=== PATIENT | female | born 1940 | race African-American/Black ===

== ENCOUNTER 2020-03-19 02:59 | Observation (INO) ==
[2020-03-19] MEDS ORDERED: hydrALAZINE 20 MG/1 ML VIAL IV STA (03:59)
[2020-03-19 04:33] LABS: Basophils % 0.2 % (0.0-0.8); Eosinophils # 0.1 10*3/uL (0.0-0.87); Eosinophils % 1.2 % (0.00-10.9); Hemoglobin 10.1 GM/DL (12.0-16.0); Immature Granulocytes % 0.4 %; Immature Granulocytes Absolute 0.02 #; Lymphocytes # 1.2 10*3/uL (1.4-4.0); Lymphocytes % 25.3 % (21.3-54.2); Mean Corpuscular HGB Conc 31.6 GM/DL (32-36); Mean Corpuscular Volume 91.4 FL (87-102); Mean Platelet Volume 10.4 FL (9.6-12.0); Monocytes % 8.6 % (1.7-12.7); Neutrophils % 64.3 % (38.7-73.9); Platelet Count 171 T/CUMM (130-400); Red Cell Distribution Width 13.4 % (9.3-17.3); White Blood Count 4.9 T/CUMM (4-12)
[2020-03-19 04:43] LABS: Bacteria,Urine Occasional /HPF (Few); Bilirubin,Urine Negative (Negative); Blood, Urine Negative (Negative); Glucose,Urine (UA) Negative (Negative); Ketones,Urine Negative (Negative); Mucus,Urine Occasional /LPF (Occasional); Nitrite,Urine Negative (Negative); Protein,Urine Negative; RBC,Urine <1 /HPF (0-4); Squamous Epithelial Cell,Urine Occasional /HPF (0-10); Urine Appearance CLEAR (Clear); Urine Color Colorless (Yellow); Urine Specific Gravity 1.005 (1.001-1.035); Urine Urobilinogen < 2.0 EU/DL (0.2-1.0); WBC,Urine 2 /HPF (0-6)
[2020-03-19 04:44] LABS: Albumin 3.8 G/DL (3.4-5.0); Bilirubin,Total 0.6 MG/DL (0.2-1.0); Calcium 10.3 MG/DL (8.5-10.1); Osmolality,Calculated 286.1 MOS/KG (273-304); Total Protein 7.8 G/DL (6.4-8.3)
[2020-03-19] MEDS ORDERED: NITROGLYCERIN SL 0.4 MG TABLET SL STA (05:19)
[2020-03-19] MEDS ORDERED: NITROGLYCERIN SL 0.4 MG TABLET SL ONE (05:20)
[2020-03-19] MEDS ORDERED: ONDANSETRON 4 MG/2 ML VIAL IV PRN (05:22)
[2020-03-19] MEDS ORDERED: DEXTROSE 50% 25 GM/50 ML VIAL IV PRN (05:22)
[2020-03-19] MEDS ORDERED: ACETAMINOPHEN 325 MG TABLET PO PRN (05:22)
[2020-03-19] MEDS ORDERED: hydrALAZINE 20 MG/1 ML VIAL IV PRN (05:22)
[2020-03-19] MEDS ORDERED: GLUCAGON 1 MG VIAL IM PRN (05:22)
[2020-03-19] MEDS ORDERED: ONDANSETRON 4 MG/2 ML VIAL IV ONE (05:23)
[2020-03-19] MEDS ORDERED: MORPHINE 4 MG/1 ML VIAL IV STA (05:23)
[2020-03-19] MEDS ORDERED: ONDANSETRON 4 MG/2 ML VIAL ONE (05:24)
[2020-03-19] MEDS ORDERED: MORPHINE 4 MG/1 ML VIAL ONE (05:25)
[2020-03-19] MEDS ORDERED: NITROGLYCERIN 2% OINT 1 INCH/GM PACK TOP SCH (06:00)
[2020-03-19] MEDS ORDERED: NITROGLYCERIN SL 0.4 MG TABLET SL PRN (07:56)
[2020-03-19] MEDS: ENOXAPARIN 30 MG/0.3 ML SYRINGE SUBCUT SCH (08:59)
[2020-03-19] MEDS: PANTOPRAZOLE 40 MG TABLET PO SCH (08:59)
[2020-03-19] MEDS: ASPIRIN CHEW 81 MG TABLET PO SCH (08:59)
[2020-03-19] MEDS: carvediloL 6.25 MG TABLET PO SCH ×2 (08:59→21:28)
[2020-03-19] MEDS: CLOPIDOGREL 75 MG TABLET PO SCH (08:59)
[2020-03-19] MEDS ORDERED: FUROSEMIDE 40 MG TABLET PO SCH (09:00)
[2020-03-19] MEDS ORDERED: carvediloL 6.25 MG TABLET PO SCH (09:00)
[2020-03-19] MEDS: INSULIN REGULAR 100 UNIT/ML SUBCUT SCH ×4 (10:30→20:58)
[2020-03-19] MEDS ORDERED: ROSUVASTATIN 40 MG PO SCH (21:00)
[2020-03-19] MEDS ORDERED: ROSUVASTATIN 20 MG TABLET PO SCH (21:00)
[2020-03-20 06:58] LABS: Basophils % 0.3 % (0.0-0.8); Eosinophils % 0.6 % (0.00-10.9); Hematocrit 29.6 VOL% (35.7-47.0); Hemoglobin 9.2 GM/DL (12.0-16.0); Lymphocytes # 1.1 10*3/uL (1.4-4.0); Lymphocytes % 32.5 % (21.3-54.2); Mean Corpuscular HGB Conc 31.1 GM/DL (32-36); Mean Corpuscular Volume 90.5 FL (87-102); Mean Platelet Volume 10.8 FL (9.6-12.0); Monocytes % 12.4 % (1.7-12.7); Neutrophils % 54.2 % (38.7-73.9); Platelet Count 147 T/CUMM (130-400); Red Blood Count 3.27 MC/CUMM (3.8-5.5); Red Cell Distribution Width 13.7 % (9.3-17.3); White Blood Count 3.4 T/CUMM (4-12)
[2020-03-20 07:19] LABS: Calcium 9.8 MG/DL (8.5-10.1); Osmolality,Calculated 284.3 MOS/KG (273-304)
[2020-03-20] MEDS: INSULIN REGULAR 100 UNIT/ML SUBCUT SCH ×2 (07:21→11:37)
[2020-03-20 07:25] LABS: Albumin 3.3 G/DL (3.4-5.0); Bilirubin,Total 1.2 MG/DL (0.2-1.0); Osmolality,Calculated 282.4 MOS/KG (273-304); Total Protein 7.1 G/DL (6.4-8.3)
[2020-03-20 07:26] LABS: Risk Ratio 2.13; VLDL CHOLESTEROL 16.2 MG/DL
[2020-03-20] MEDS: PANTOPRAZOLE 40 MG TABLET PO SCH (08:31)
[2020-03-20] MEDS: carvediloL 6.25 MG TABLET PO SCH (08:31)
[2020-03-20] MEDS: ASPIRIN CHEW 81 MG TABLET PO SCH (08:31)
[2020-03-20] MEDS: CLOPIDOGREL 75 MG TABLET PO SCH (08:31)
[2020-03-20] MEDS: ENOXAPARIN 30 MG/0.3 ML SYRINGE SUBCUT SCH (08:31)
[2020-03-20 11:53] VITALS: BP 105/75
== END 2020-03-20 13:45 | disposition home or self-care (01) ==
LOC: N.ED 02:59 → N.EDINP 02:59 → N.3E 06:05
PROVIDERS: ADMIT Internal Medicine; ATTEND Internal Medicine

== ENCOUNTER 2021-08-17 09:54 | Observation (INO) ==
[2021-08-17] MEDS ORDERED: hydrALAZINE 20 MG/1 ML VIAL IV STA (10:20)
[2021-08-17 10:48] LABS: Hematocrit 32.2 VOL% (35.7-47.0); Hemoglobin 9.9 GM/DL (12.0-16.0); Lymphocytes # 0.7 10*3/uL (1.4-4.0); Lymphocytes % 20.8 % (21.3-54.2); Mean Corpuscular HGB Conc 30.7 GM/DL (32-36); Mean Corpuscular Volume 90.2 FL (87-102); Mean Platelet Volume 10.7 FL (9.6-12.0); Monocytes % 8.7 % (1.7-12.7); Neutrophils % 69.5 % (38.7-73.9); Platelet Count 140 T/CUMM (130-400); Red Blood Count 3.57 MC/CUMM (3.8-5.5); Red Cell Distribution Width 14.2 % (9.3-17.3); White Blood Count 3.1 T/CUMM (4-12)
[2021-08-17 11:22] LABS: Albumin 3.6 G/DL (3.4-5.0); Bilirubin,Total 0.5 MG/DL (0.20-1.00); Calcium 10.4 MG/DL (8.5-10.1); Total Protein 7.3 G/DL (6.4-8.2)
[2021-08-17 11:32] LABS: Osmolality,Calculated 278.7 MOS/KG (273-304); Potassium 4.5 MMOL/L (3.5-5.1)
[2021-08-17] MEDS ORDERED: ALBUTEROL/IPRATROPIUM 3 ML NEB RESP TX STA (11:56)
[2021-08-17] MEDS ORDERED: FUROSEMIDE 20 MG/2 ML VIAL IV STA (12:30)
[2021-08-17 12:44] LABS: INR 1.1; PT Patient Result 11.9 SECS (10.5-12.0); Partial Thromboplastin Time 26.8 SECS (23.8-32.1)
[2021-08-17] MEDS ORDERED: FUROSEMIDE 40 MG/4 ML VIAL ONE (13:21)
[2021-08-17] MEDS ORDERED: ALUM/MAG/SIMETH/LIDO VISC 1:1 30 ML BOTTLE PO STA (15:53)
[2021-08-17] MEDS ORDERED: PANTOPRAZOLE 40 MG VIAL IV ONE (15:53)
[2021-08-17] MEDS ORDERED: ENOXAPARIN 40 MG/0.4 ML SYRINGE SUBCUT STA (16:06)
[2021-08-17] MEDS ORDERED: ONDANSETRON 4 MG/2 ML VIAL IV PRN (19:00)
[2021-08-17] MEDS ORDERED: ALBUTEROL 2.5 MG/3 ML NEB RESP TX PRN (19:00)
[2021-08-17] MEDS ORDERED: NITROGLYCERIN SL 0.4 MG TABLET SL PRN (19:00)
[2021-08-17] MEDS ORDERED: ACETAMINOPHEN 325 MG TABLET PO PRN (19:00)
[2021-08-17] MEDS ORDERED: IBUPROFEN 200 MG TABLET PO PRN (19:00)
[2021-08-17] MEDS: DOCUSATE SODIUM 100 MG CAPSULE PO SCH (21:04)
[2021-08-17] MEDS: cilostazoL 100 MG TABLET PO SCH (21:04)
[2021-08-17] MEDS: ROSUVASTATIN 20 MG TABLET PO SCH (21:04)
[2021-08-17] MEDS: cloNIDine 0.1 MG TABLET PO SCH (21:04)
[2021-08-17] MEDS: carvediloL 25 MG TABLET PO SCH (21:04)
[2021-08-18 04:14] LABS: Basophils % 0.4 % (0.0-0.8); Eosinophils % 0.8 % (0.00-10.9); Hematocrit 27.5 VOL% (35.7-47.0); Hemoglobin 8.6 GM/DL (12.0-16.0); Immature Granulocytes % 0.4 %; Immature Granulocytes Absolute 0.01 #; Lymphocytes # 0.6 10*3/uL (1.4-4.0); Lymphocytes % 24.5 % (21.3-54.2); Mean Corpuscular HGB Conc 31.3 GM/DL (32-36); Mean Corpuscular Volume 88.4 FL (87-102); Mean Platelet Volume 10.8 FL (9.6-12.0); Monocytes % 13.8 % (1.7-12.7); Neutrophils % 60.1 % (38.7-73.9); Platelet Count 141 T/CUMM (130-400); Red Blood Count 3.11 MC/CUMM (3.8-5.5); Red Cell Distribution Width 14.2 % (9.3-17.3); White Blood Count 2.6 T/CUMM (4-12)
[2021-08-18 04:55] LABS: Calcium 9.6 MG/DL (8.5-10.1); Potassium 3.7 MMOL/L (3.5-5.1)
[2021-08-18] MEDS ORDERED: PANTOPRAZOLE 40 MG TABLET PO SCH (09:00)
[2021-08-18] MEDS: PANTOPRAZOLE 40 MG TABLET PO SCH (09:11)
[2021-08-18] MEDS: DORZOLAMIDE 2% OPH SOLN 10 ML BOTTLE BOTH EYES SCH ×3 (09:11→21:24)
[2021-08-18] MEDS: ENOXAPARIN 30 MG/0.3 ML SYRINGE SUBCUT SCH (09:21)
[2021-08-18] MEDS: ASPIRIN CHEW 81 MG TABLET PO SCH (09:21)
[2021-08-18] MEDS: CLOPIDOGREL 75 MG TABLET PO SCH (09:21)
[2021-08-18] MEDS: BRIMONIDINE 0.15% OPH SOLN 1 DROP/DROPS BOTTLE BOTH EYES SCH ×2 (09:21→21:24)
[2021-08-18] MEDS: DOCUSATE SODIUM 100 MG CAPSULE PO SCH ×2 (09:21→21:10)
[2021-08-18] MEDS: carvediloL 25 MG TABLET PO SCH ×2 (09:21→21:10)
[2021-08-18] MEDS: FUROSEMIDE 20 MG TABLET PO SCH (09:48)
[2021-08-18] MEDS: cilostazoL 100 MG TABLET PO SCH ×2 (09:49→21:09)
[2021-08-18] MEDS: TIMOLOL 0.5% OPH SOLN 5 ML BOTTLE BOTH EYES SCH ×2 (09:51→21:24)
[2021-08-18] MEDS ORDERED: FUROSEMIDE 40 MG/4 ML VIAL IV ONE (12:12)
[2021-08-18] MEDS: cloNIDine 0.1 MG TABLET PO SCH (21:09)
[2021-08-18] MEDS: ROSUVASTATIN 20 MG TABLET PO SCH (21:10)
[2021-08-18] MEDS: BIMATOPROST 0.01% OPH SOLN 2.5 ML BOTTLE BOTH EYES SCH (21:24)
[2021-08-18] MEDS ORDERED: IBUPROFEN 400 MG TABLET PO PRN (21:30)
[2021-08-19 06:08] LABS: Basophils % 0.4 % (0.0-0.8); Eosinophils % 1.2 % (0.00-10.9); Hematocrit 26.6 VOL% (35.7-47.0); Hemoglobin 8.4 GM/DL (12.0-16.0); Lymphocytes # 0.8 10*3/uL (1.4-4.0); Mean Corpuscular HGB Conc 31.6 GM/DL (32-36); Mean Corpuscular Volume 86.9 FL (87-102); Mean Platelet Volume 10.5 FL (9.6-12.0); Neutrophils % 51.4 % (38.7-73.9); Platelet Count 144 T/CUMM (130-400); Red Blood Count 3.06 MC/CUMM (3.8-5.5); Red Cell Distribution Width 14.2 % (9.3-17.3); White Blood Count 2.5 T/CUMM (4-12)
[2021-08-19 06:19] LABS: Calcium 9.7 MG/DL (8.5-10.1); Osmolality,Calculated 279.7 MOS/KG (273-304)
[2021-08-19] MEDS: cilostazoL 100 MG TABLET PO SCH ×2 (09:38→21:30)
[2021-08-19] MEDS: ASPIRIN CHEW 81 MG TABLET PO SCH (09:38)
[2021-08-19] MEDS: DOCUSATE SODIUM 100 MG CAPSULE PO SCH ×2 (09:39→21:26)
[2021-08-19] MEDS: carvediloL 25 MG TABLET PO SCH ×2 (09:39→21:26)
[2021-08-19] MEDS: PANTOPRAZOLE 40 MG TABLET PO SCH (09:39)
[2021-08-19] MEDS: traMADol 50 MG TABLET PO PRN ×2 (09:39→21:33)
[2021-08-19] MEDS: CLOPIDOGREL 75 MG TABLET PO SCH (09:39)
[2021-08-19] MEDS: DORZOLAMIDE 2% OPH SOLN 10 ML BOTTLE BOTH EYES SCH ×3 (09:42→21:27)
[2021-08-19] MEDS: BRIMONIDINE 0.15% OPH SOLN 1 DROP/DROPS BOTTLE BOTH EYES SCH ×2 (09:42→21:27)
[2021-08-19] MEDS: ENOXAPARIN 30 MG/0.3 ML SYRINGE SUBCUT SCH (09:42)
[2021-08-19] MEDS: TIMOLOL 0.5% OPH SOLN 5 ML BOTTLE BOTH EYES SCH ×2 (09:42→21:27)
[2021-08-19] MEDS: ROSUVASTATIN 20 MG TABLET PO SCH (21:26)
[2021-08-19] MEDS: cloNIDine 0.1 MG TABLET PO SCH (21:27)
[2021-08-19] MEDS: BIMATOPROST 0.01% OPH SOLN 2.5 ML BOTTLE BOTH EYES SCH (21:28)
[2021-08-20 05:07] LABS: Basophils % 0.4 % (0.0-0.8); Eosinophils % 1.8 % (0.00-10.9); Hematocrit 24.9 VOL% (35.7-47.0); Hemoglobin 7.8 GM/DL (12.0-16.0); Lymphocytes # 0.9 10*3/uL (1.4-4.0); Lymphocytes % 39.6 % (21.3-54.2); Mean Corpuscular HGB Conc 31.3 GM/DL (32-36); Mean Corpuscular Volume 88.9 FL (87-102); Mean Platelet Volume 10.4 FL (9.6-12.0); Monocytes % 15.1 % (1.7-12.7); Neutrophils % 43.1 % (38.7-73.9); Platelet Count 134 T/CUMM (130-400); White Blood Count 2.3 T/CUMM (4-12)
[2021-08-20 05:34] LABS: Eosinophils 1 % (0-10); Hypochromia 1+; Lymphocytes 31 % (20-55); Microcytosis 1+; Platelet Estimate Adequate; Segmented Neutrophils 51 % (50-85); Total Cells Counted 100
[2021-08-20 05:35] LABS: Calcium 9.2 MG/DL (8.5-10.1); Potassium 3.8 MMOL/L (3.5-5.1)
[2021-08-20 08:47] LABS: % Iron Saturation 17.4 % (18-50)
[2021-08-20] MEDS: PANTOPRAZOLE 40 MG TABLET PO SCH (08:50)
[2021-08-20] MEDS: ASPIRIN CHEW 81 MG TABLET PO SCH (08:51)
[2021-08-20] MEDS: FUROSEMIDE 20 MG TABLET PO SCH (08:51)
[2021-08-20] MEDS: carvediloL 25 MG TABLET PO SCH ×2 (08:51→20:33)
[2021-08-20] MEDS: DOCUSATE SODIUM 100 MG CAPSULE PO SCH ×2 (08:51→20:33)
[2021-08-20] MEDS: BRIMONIDINE 0.15% OPH SOLN 1 DROP/DROPS BOTTLE BOTH EYES SCH ×2 (08:51→20:33)
[2021-08-20] MEDS: cilostazoL 100 MG TABLET PO SCH ×2 (08:52→20:33)
[2021-08-20] MEDS: ENOXAPARIN 30 MG/0.3 ML SYRINGE SUBCUT SCH (08:52)
[2021-08-20] MEDS: DORZOLAMIDE 2% OPH SOLN 10 ML BOTTLE BOTH EYES SCH ×3 (08:52→20:34)
[2021-08-20] MEDS: CLOPIDOGREL 75 MG TABLET PO SCH (08:52)
[2021-08-20] MEDS: TIMOLOL 0.5% OPH SOLN 5 ML BOTTLE BOTH EYES SCH ×2 (08:53→20:33)
[2021-08-20] MEDS: FERROUS SULFATE 325 MG TABLET PO SCH ×2 (13:13→20:33)
[2021-08-20 14:28] LABS: Eosinophils % 0.6 % (0.00-10.9); Hematocrit 28.4 VOL% (35.7-47.0); Hemoglobin 9.1 GM/DL (12.0-16.0); Immature Granulocytes % 0.3 %; Immature Granulocytes Absolute 0.01 #; Lymphocytes # 0.7 10*3/uL (1.4-4.0); Lymphocytes % 18.9 % (21.3-54.2); Mean Corpuscular Volume 88.2 FL (87-102); Mean Platelet Volume 10.7 FL (9.6-12.0); Monocytes % 6.7 % (1.7-12.7); Neutrophils % 73.5 % (38.7-73.9); Platelet Count 153 T/CUMM (130-400); Red Blood Count 3.22 MC/CUMM (3.8-5.5); Red Cell Distribution Width 14.1 % (9.3-17.3); White Blood Count 3.6 T/CUMM (4-12)
[2021-08-20] MEDS: ROSUVASTATIN 20 MG TABLET PO SCH (20:33)
[2021-08-20] MEDS: cloNIDine 0.1 MG TABLET PO SCH (20:33)
[2021-08-20] MEDS: BIMATOPROST 0.01% OPH SOLN 2.5 ML BOTTLE BOTH EYES SCH (20:34)
[2021-08-20] MEDS: traMADol 50 MG TABLET PO PRN (23:52)
[2021-08-21 05:19] LABS: Eosinophils % 1.1 % (0.00-10.9); Hematocrit 25.6 VOL% (35.7-47.0); Hemoglobin 7.8 GM/DL (12.0-16.0); Lymphocytes # 0.9 10*3/uL (1.4-4.0); Mean Corpuscular HGB Conc 30.5 GM/DL (32-36); Mean Corpuscular Volume 90.5 FL (87-102); Mean Platelet Volume 10.6 FL (9.6-12.0); Monocytes % 15.3 % (1.7-12.7); Neutrophils % 49.6 % (38.7-73.9); Platelet Count 138 T/CUMM (130-400); Red Blood Count 2.83 MC/CUMM (3.8-5.5); Red Cell Distribution Width 13.9 % (9.3-17.3); White Blood Count 2.7 T/CUMM (4-12)
[2021-08-21 05:42] LABS: Calcium 9.5 MG/DL (8.5-10.1)
[2021-08-21 06:09] LABS: Hypochromia 1+; Lymphocytes 32 % (20-55); Microcytosis 1+; Platelet Estimate Normal; Segmented Neutrophils 59 % (50-85); Total Cells Counted 100
[2021-08-21 08:23] VITALS: BP 150/59
[2021-08-21] MEDS: PANTOPRAZOLE 40 MG TABLET PO SCH (08:25)
[2021-08-21] MEDS: BRIMONIDINE 0.15% OPH SOLN 1 DROP/DROPS BOTTLE BOTH EYES SCH (08:26)
[2021-08-21] MEDS: FERROUS SULFATE 325 MG TABLET PO SCH (08:27)
[2021-08-21] MEDS: carvediloL 25 MG TABLET PO SCH (08:27)
[2021-08-21] MEDS: DOCUSATE SODIUM 100 MG CAPSULE PO SCH (08:27)
[2021-08-21] MEDS: ASPIRIN CHEW 81 MG TABLET PO SCH (08:27)
[2021-08-21] MEDS: CLOPIDOGREL 75 MG TABLET PO SCH (08:27)
[2021-08-21] MEDS: ENOXAPARIN 30 MG/0.3 ML SYRINGE SUBCUT SCH (08:27)
[2021-08-21] MEDS: TIMOLOL 0.5% OPH SOLN 5 ML BOTTLE BOTH EYES SCH (08:28)
[2021-08-21] MEDS: cilostazoL 100 MG TABLET PO SCH (08:28)
[2021-08-21] MEDS: DORZOLAMIDE 2% OPH SOLN 10 ML BOTTLE BOTH EYES SCH (08:28)
[2021-08-21 08:35] LABS: Hemoglobin 8.7 GM/DL (12.0-16.0)
[2021-08-21] MEDS: FUROSEMIDE 20 MG TABLET PO SCH (09:10)
== END 2021-08-21 11:45 | disposition home or self-care (01) ==
LOC: N.EDINP 09:54 → N.ED 09:54 → N.TELEN 08-18 14:26
PROVIDERS: ADMIT Family Medicine; ATTEND Family Medicine

== ENCOUNTER 2022-06-12 14:48 | Observation (INO) ==
[2022-06-12] MEDS ORDERED: ENOXAPARIN 100 MG/ML SYRINGE SUBCUT STA (15:21)
[2022-06-12] MEDS ORDERED: ENOXAPARIN 60 MG/0.6 ML SYRINGE SUBCUT STA (15:29)
[2022-06-12 15:31] LABS: Eosinophils % 0.9 % (0.00-10.9); Hematocrit 30.9 VOL% (35.7-47.0); Hemoglobin 10.2 GM/DL (12.0-16.0); Immature Granulocytes % 0.3 %; Immature Granulocytes Absolute 0.01 #; Lymphocytes # 0.9 10*3/uL (1.4-4.0); Lymphocytes % 27.2 % (21.3-54.2); Mean Corpuscular Volume 89.6 FL (87-102); Mean Platelet Volume 9.7 FL (9.6-12.0); Monocytes # 0.4 10*3/uL (0.11-0.8); Monocytes % 11.6 % (1.7-12.7); Platelet Count 146 T/CUMM (130-400); Red Blood Count 3.45 MC/CUMM (3.8-5.5); Red Cell Distribution Width 11.9 % (9.3-17.3); White Blood Count 3.5 T/CUMM (4-12)
[2022-06-12 15:52] LABS: Albumin 3.8 G/DL (3.4-5.0); Bilirubin,Total 0.5 MG/DL (0.20-1.00); Calcium 9.9 MG/DL (8.5-10.1); Osmolality,Calculated 271.1 MOS/KG (273-304); Potassium 4.1 MMOL/L (3.5-5.1); Total Protein 7.2 G/DL (6.4-8.2)
[2022-06-12] MEDS ORDERED: ONDANSETRON 4 MG/2 ML VIAL IV PRN (16:19)
[2022-06-12] MEDS ORDERED: cloNIDine 0.1 MG TABLET PO ONE (18:33)
[2022-06-12 18:34] LABS: Basophils % 0.3 % (0.0-0.8); Eosinophils % 0.8 % (0.00-10.9); Hematocrit 32.2 VOL% (35.7-47.0); Hemoglobin 10.6 GM/DL (12.0-16.0); Immature Granulocytes % 0.3 %; Immature Granulocytes Absolute 0.01 #; Lymphocytes % 26.9 % (21.3-54.2); Mean Corpuscular HGB Conc 32.9 GM/DL (32-36); Mean Corpuscular Volume 89.4 FL (87-102); Mean Platelet Volume 9.8 FL (9.6-12.0); Monocytes # 0.4 10*3/uL (0.11-0.8); Monocytes % 11.4 % (1.7-12.7); Neutrophils % 60.3 % (38.7-73.9); Platelet Count 153 T/CUMM (130-400); Red Cell Distribution Width 11.9 % (9.3-17.3); White Blood Count 3.6 T/CUMM (4-12)
[2022-06-12] MEDS: ACETAMINOPHEN 325 MG TABLET PO PRN (18:55)
[2022-06-12] MEDS: DOCUSATE SODIUM 100 MG CAPSULE PO SCH (20:25)
[2022-06-12] MEDS ORDERED: PNEUMOCOCCAL VACCINE (20 VALENT) 0.5 ML SYRINGE IM ONE (21:00)
[2022-06-13 04:37] LABS: Basophils % 0.3 % (0.0-0.8); Eosinophils % 0.8 % (0.00-10.9); Hematocrit 28.8 VOL% (35.7-47.0); Hemoglobin 9.4 GM/DL (12.0-16.0); Immature Granulocytes % 0.3 %; Immature Granulocytes Absolute 0.01 #; Lymphocytes # 0.6 10*3/uL (1.4-4.0); Lymphocytes % 16.7 % (21.3-54.2); Mean Corpuscular HGB Conc 32.6 GM/DL (32-36); Mean Corpuscular Volume 90.6 FL (87-102); Mean Platelet Volume 10.2 FL (9.6-12.0); Monocytes # 0.5 10*3/uL (0.11-0.8); Monocytes % 14.8 % (1.7-12.7); Neutrophils % 67.1 % (38.7-73.9); Platelet Count 134 T/CUMM (130-400); Red Blood Count 3.18 MC/CUMM (3.8-5.5); Red Cell Distribution Width 11.9 % (9.3-17.3); White Blood Count 3.7 T/CUMM (4-12)
[2022-06-13 04:54] LABS: Osmolality,Calculated 278.5 MOS/KG (273-304); Potassium 4.2 MMOL/L (3.5-5.1)
[2022-06-13] MEDS ORDERED: NITROGLYCERIN SL 0.4 MG TABLET SL PRN (06:19)
[2022-06-13] MEDS ORDERED: ALBUTEROL 2.5 MG/3 ML NEB RESP TX PRN (06:30)
[2022-06-13] MEDS ORDERED: cilostazoL 100 MG TABLET PO SCH (07:30)
[2022-06-13] MEDS ORDERED: SODIUM CHLORIDE 0.65% NASAL SPRAY 45 ML BOTTLE BOTH NARES PRN (07:57)
[2022-06-13] MEDS ORDERED: LORATADINE 10 MG TABLET PO PRN (07:57)
[2022-06-13] MEDS ORDERED: MAGNESIUM HYDROXIDE SUSP 30 ML UDCUP PO PRN (07:58)
[2022-06-13] MEDS: ACETAMINOPHEN 325 MG TABLET PO PRN (08:27)
[2022-06-13] MEDS: DOCUSATE SODIUM 100 MG CAPSULE PO SCH (08:27)
[2022-06-13] MEDS ORDERED: ASPIRIN CHEW 81 MG TABLET PO SCH (09:00)
[2022-06-13] MEDS ORDERED: PANTOPRAZOLE 40 MG TABLET PO SCH (09:00)
[2022-06-13] MEDS ORDERED: CLOPIDOGREL 75 MG TABLET PO SCH (09:00)
[2022-06-13] MEDS ORDERED: amLODIPine 5 MG TABLET PO SCH (09:00)
[2022-06-13] MEDS ORDERED: FUROSEMIDE 20 MG TABLET PO SCH (09:00)
[2022-06-13] MEDS ORDERED: FERROUS SULFATE 325 MG TABLET PO SCH (09:00)
[2022-06-13] MEDS ORDERED: ROSUVASTATIN 20 MG TABLET PO SCH (09:00)
[2022-06-13] MEDS ORDERED: SERTRALINE 50 MG TABLET PO SCH (09:00)
[2022-06-13] MEDS ORDERED: TIMOLOL 0.5% OPH SOLN 5 ML BOTTLE BOTH EYES SCH (09:00)
[2022-06-13] MEDS ORDERED: carvediloL 25 MG TABLET PO SCH (09:00)
[2022-06-13] MEDS ORDERED: SODIUM CHLORIDE 0.9% 1,000 ML IV SCH (09:30)
[2022-06-13] MEDS: DORZOLAMIDE 2% OPH SOLN 10 ML BOTTLE BOTH EYES SCH ×2 (10:00→15:02)
[2022-06-13] MEDS ORDERED: cloNIDine 0.1 MG TABLET PO PRN (12:00)
[2022-06-13 12:37] VITALS: BP 143/68
[2022-06-13] MEDS ORDERED: PNEUMOCOCCAL VACCINE (13 VALENT) 0.5 ML SYRINGE IM ONE (16:00)
== END 2022-06-13 16:00 | disposition home or self-care (01) ==
LOC: N.EDINP 14:48 → N.ED 14:48 → N.EDINP 18:06 → N.TELES 18:10
PROVIDERS: ADMIT Family Medicine; ATTEND Family Medicine